=== PATIENT | female | born 1970 ===

== ENCOUNTER 2020-03-04 09:31 | Outpatient (REF) | payer BC, SELFPAY ==
[2020-03-04 19:33] LABS: Abs Immature Grans 0.02 10^3/uL (0.0-0.06); Absolute Eosinophil Count 0.19 10^3/uL (0.0-0.7); Immature Grans % 0.4; Nucleated RBC 0 %
[2020-03-04 19:35] LABS: Absolute Basophil Count 0.05 10^3/uL (0.0-0.2); Absolute Lymphocyte Count 1.47 10^3/uL (1.2-3.4); Absolute Monocyte Count 0.45 10^3/uL (0.1-0.8); Absolute Neutrophil Count 2.73 10^3/uL (1.2-6.7); Eosinophils % 3.9; HCT 46.3 % (36.0-46.0); HGB 15.5 g/dL (11.2-15.7); Lymphocytes % 29.9; MCH 28.1 pg (27.0-33.0); MCHC 33.5 % (32.0-36.0); MCV 83.9 fL (80-95); MPV 13.2 fL (8.0-11.0); Monocytes % 9.2; Neutrophils % 55.6; Platelet Count 127 10^3/uL (130-400); RBC 5.52 10^6/uL (3.93-5.22); RDW-SD 39.6 fL; WBC 4.91 10^3/uL (4.4-10.8)
[2020-03-04 19:43] LABS: ALT 39 U/L (14-59); AST 18 U/L (15-37); Albumin 4.2 g/dL (3.4-5.0); Alkaline Phosphatase 52 U/L (46-116); Anion Gap 5.6 mmol/L (3-11); BUN 14 mg/dL (7-18); CO2 31.4 mmol/L (21.0-32.0); CREATININE 1.13 mg/dL (0.55-1.02); Calcium 8.7 mg/dL (8.5-10.1); Calculated LDL 140 mg/dL (<100); Chloride 103 mmol/L (98-107); Cholesterol 200 mg/dL (<200); Estimated GFR 51.61 (mL/min/1.73m2); Glucose 91 mg/dL (74-106); HDL Cholesterol 45 mg/dL (40-60); Potassium 4.2 mmol/L (3.5-5.1); Sodium 140 mmol/L (136-145); Total Protein 7.1 g/dL (6.4-8.2); Triglyceride 77 mg/dL (<150)
== END 2020-03-04 09:51 ==
LOC: NCHCN 09:31
PROVIDERS: PCP Physician Assistant; Visit Provider Physician Assistant
DX: Z00.00 Encounter for general adult medical examination without abnormal findings (principal); Z13.1 Encounter for screening for diabetes mellitus; Z13.220 Encounter for screening for lipoid disorders; Z13.228 Encounter for screening for other metabolic disorders
CPT/HCPCS: 80053; 80061; 85025

== ENCOUNTER 2023-06-14 09:47 | Outpatient (REF) | payer SELFPAY ==
[2023-06-14 19:01] LABS: Hemoglobin A1C 5.6 % (<5.7)
[2023-06-14 19:02] LABS: ALT 21 U/L (14-59); AST 15 U/L (15-37); Alkaline Phosphatase 56 U/L (46-116); BUN 9 mg/dL (7-18); Bilirubin, Total 0.9 mg/dL (0.2-1.0); Calcium 9.3 mg/dL (8.5-10.1); Calculated LDL 136 mg/dL (<100); Chloride 103 mmol/L (98-107); Cholesterol 205 mg/dL (<200); Estimated GFR 68.21 (mL/min/1.73m2); Glucose 97 mg/dL (74-106); HDL Cholesterol 50 mg/dL (40-60); Sodium 137 mmol/L (136-145); Total Protein 7.7 g/dL (6.4-8.2); Triglyceride 96 mg/dL (<150)
== END 2023-06-14 09:48 | disposition home or self-care (01) ==
LOC: NCHCN 09:47
PROVIDERS: PCP Physician Assistant; Visit Provider Physician Assistant
DX: E78.5 Hyperlipidemia, unspecified (principal); Z13.1 Encounter for screening for diabetes mellitus
CPT/HCPCS: 80053; 80061; 83036